=== PATIENT | female | born 1990 | race African-American/Black ===

== ENCOUNTER 2018-09-19 20:44 | Emergency (ER) | payer MEDICAID ==
[~2018-09-19] VITALS: Ht 165.1 cm; Wt 63.5 kg
[2018-09-19 21:30] VITALS: BP 125/81
--- NOTE | 2018-09-19 21:30 | NUR ---
PT BIBSELF C/O L SIDE MOUTH PAIN X1 DAY. WAITING FOR APPROVAL FOR WISDOM TEETHSURGERY. LAST DOSE 600MG IBUPROFEN X2HR [employer]. PT AOX4. RESP EVEN AND UNLABORED. PT IN BED 11 WITH FAMILY AT BEDSIDE. WILL CONTINUE TO MONITOR.
[2018-09-19] MEDS ORDERED: MORPHINE SULFATE INJ 4 MG/ML DISP.SYRIN ONE (22:08)
[2018-09-19] MEDS ORDERED: ONDANSETRON 4 MG TAB.RAPDIS ONE (22:09)
[2018-09-19] MEDS: ONDANSETRON 4 MG TAB.RAPDIS SL ONE (22:16)
[2018-09-19] MEDS: MORPHINE SULFATE INJ 4 MG/ML DISP.SYRIN IM ONE (22:16)
== END 2018-09-19 22:34 | disposition home or self-care (01) ==
LOC: ER 20:44
DX: K02.9 Dental caries, unspecified (principal); K08.89 Other specified disorders of teeth and supporting structures
CPT/HCPCS: 96372; 99283; J2270; Q0162

== ENCOUNTER 2023-01-10 11:37 | Emergency (ER) | payer MEDICAID, OTHER ==
[~2023-01-10] VITALS: Ht 165.1 cm; Wt 68.0 kg
[2023-01-10] MEDS ORDERED: NITR100C6 PO (12:24)
[2023-01-10] MEDS ORDERED: FLUC200T PO (12:24)
[2023-01-10 12:29] VITALS: BP 127/75; TEMP 98.1; O2SAT 100
[2023-01-10 13:29] LABS: APPEARANCE,URINE CLEAR (CLEAR); BILIRUBIN,URINE NEGATIVE (NEGATIVE); BLOOD, URINE NEGATIVE Ery/uL (NEGATIVE); COLOR,URINE YELLOW (YELLOW); KETONES,URINE TRACE mg/dL (NEGATIVE); LEUKOCYTE ESTERASE ,URINE TRACE (NEGATIVE); NITRITE, URINE NEGATIVE (NEGATIVE); PH,URINE 6.5 (5.0-8.0); PROTEIN,URINE NEGATIVE (NEGATIVE); UGLUCOSE NEGATIVE (NEGATIVE); UROBILINOGEN,URINE 0.2 EU/dL (0.2)
[2023-01-10 13:41] LABS: PREGNANCY TEST URINE QUAL NEGATIVE (NEGATIVE)
[2023-01-10 13:50] LABS: ADD URINE CULTURE NO; BACTERIA,URINE Rare /HPF (None Seen); SQUAMOUS EPITHELIAL CELL,UR Few /HPF (None Seen)
== END 2023-01-10 12:30 | disposition home or self-care (01) ==
LOC: ER 11:44
DX: N39.0 Urinary tract infection, site not specified (principal); Z79.899 Other long term (current) drug therapy; Z60.2 Problems related to living alone
CPT/HCPCS: 81001; 84703-TC; 87086-TC